=== PATIENT | male | born 2000 | race Caucasian/White ===

== ENCOUNTER 2019-04-27 09:09 | Observation (INO) | payer SELFPAY ==
[2019-04-27] VITALS (28 sets, daily range): BP systolic 101–146; BP diastolic 55–83; PULSE 58–91; RESP 14–20; TEMP 36.3–37.1; O2SAT 98–100; BMI 21.1
--- NOTE | 2019-04-27 09:55 | ED_ITS ---
Entered by Thalia Mccray, acting as scribe for HPI - Abdominal Pain General: Chief Complaint: Abdominal Pain Stated Complaint: pain in right side Time Seen by Provider: 04/27/19 09:56 Source: patient Mode of arrival: ambulatory Limitations: no limitations History of Present Illness: HPI narrative: 18 yo male presents with RLQ pain. pt states this started 2 days ago. 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 pt states this worsened 2 days ago and never got any better. pts last BM was this morning. pt denies any other symptoms at this time. MD elicited complaint: abdominal pain Pertinent past history: none Onset (ago): day(s) (2 days ago) Pain Consistency: constant Location: RLQ Severity: moderate Quality: sharp Radiation: none Migration to: RLQ Exacerbating factors: other (movement) Relieving factors: rest Associated Symptoms: Reports nausea and vomiting; Denies chills, coffee ground emesis, constipation, GI cramping, diarrhea, dysuria, fever(s), hematochezia, hematuria, hematemesis, melena and syncope Review of Systems General: Reports: 10 or more systems reviewed and unremarkable except in HPI and below Const: Denies: fever, chills, body aches, fatigue, malaise or diaphoresis Eyes: Denies: change in vision or blurry vision ENMT: Denies: throat pain, painful swallowing, hoarseness, ear pain, ear discharge, Change in hearing or nasal discharge Card: Denies: chest pain, palpitations, irregular heart rhythm, syncope, pre-syncope, shortness of breath on exertion or shortness of breath when lying down Resp: Denies: shortness of breath, productive cough, non-productive cough, wheezing, coughing up blood or chest congestion GI: Reports: abdominal pain, nausea and vomiting; Denies: vomiting blood, coffee grounds in vomit, diarrhea, constipation, cramping, blood in stool or black tarry stool : Denies: flank pain, difficulty urinating, painful urination, urinary frequency, urinary urgency, decreased urine ouput, urinary incontinence or blood in urine Musc: Denies: neck pain, back pain, extremity pain, extremity swelling, joint pain, joint swelling, joint warmth or joint stiffness Skin/Breast: Denies: rash, skin tenderness or yellow skin Neuro: Denies: headache, numbness in extremities, weakness in extremities, changes in sensation, lack of coordination, difficulty walking, dizziness, vertigo or confusion Endo: Denies: excessive thirst, tired all the time, cold intolerance, excessive sweating, flushing or hot flashes Kapil/Lymph: Denies: easy bruising, easy bleeding, petechiae or enlarged lymph nodes All/Imm: Denies: hives, throat swelling, tongue swelling, facial swelling or acute wheezing PFSH ED PFSH: Statuses (acute, chronic, etc) shown below reflect problem list status as previously entered and may not be historically accurate Social History Smoking and tobacco status: current every day smoker Alcohol intake: former Former alcohol use details: Has not drank for 30 days, used to drink 12 pack every other day Physical Exam Const: COMMON NORMALS: no apparent distress, oriented x3, no limitations, healthy appearing and well nourished EXAM LIMITATIONS: no altered mental status GENERAL APPEARANCE: cooperative, well kempt and well developed ORIENTATION/CONSCIOUSNESS: Yes awake HENMT: COMMON NORMALS: normocephalic, head/scalp atraumatic, hearing grossly normal bilaterally, external ears normal, EAC's normal, external nose normal and moist oral mucous membranes HEAD & SCALP: normal to inspection, normocephalic and atraumatic FACE & SINUS: normal facial exam and face symmetric NOSE: external nose normal and nares normal EXTERNAL EAR: Yes external ears normal EXTERNAL AUDITORY CANAL: EAC's normal MOUTH: oral and palatal mucosa normal and tongue normal Eye: COMMON NORMALS: PERRL, EOMs intact bilaterally, conjunctivae normal and no scleral icterus GENERAL EYE: normal appearance of both eyes and normal light reflex CONJUNCTIVA: Yes conjunctivae normal SCLERA: sclerae normal CORNEA: Yes corneas normal PUPIL: Yes PERRL DIRECT OPHTHALMOSCOPY: Yes normal light reflex Neck/C-Spine: COMMON NORMALS: full ROM, no lymphadenopathy, supple, no meningeal signs and no JVD GENERAL: Yes normal visual inspection and Yes trachea midline CERVICAL SPINE: Yes cervical ROM normal Chest: COMMONS NORMALS: inspection of chest normal and palpation of chest normal Resp: COMMON NORMALS: normal respiratory effort, no retractions, no use of accessory muscles and clear to auscultation bilaterally EFFORT & INSPECTION: Yes able to speak in complete sentences AUSCULTATION: clear to auscultation bilaterally Cardio: COMMON NORMALS: no JVD, regular rate, regular rhythm, S1 normal heart sound, S2 normal heart sound, no gallops, no clicks, no murmurs and no rub JUGULAR VENOUS DISTENTION: no JVD RATE: regular rate RHYTHM: regular rhythm HEART SOUNDS: S1 normal and S2 normal GI: COMMON NORMALS: soft to palpation, no hepatosplenomegaly and no masses PALPATION: Yes soft, Yes tender Details: RLQ (MODERATE) and Yes no hepatosp lenomegaly : COMMON NORMALS: Yes no CVA tenderness BLADDER/KIDNEY EXAM: Yes no CVA tenderness Back/Pelvis: COMMON NORMALS: no CVA tenderness, thoracic and lumbar spine normal to inspection, no thoracic nor lumbar tenderness and thoraco-lumbar ROM normal Extremity: COMMON NORMALS: normal to inspection, full ROM, normal capillary refill, no joint enlargement, no clubbing, cyanosis or edema and no calf tenderness Neuro: COMMON NORMALS: oriented x3, CN's II-XII intact bilaterally, moves all extremities, no focal motor deficits and no sensory deficits noted MENINGEAL SIGNS: Yes no meningeal signs Psych: COMMON NORMALS: mental status grossly normal, thought process normal, cooperative, affect normal, speech normal and activity/motor behavior normal APPEARANCE: Yes well kempt SPEECH: Yes normal speech THOUGHT PROCESS: normal thought process Skin: COMMON NORMALS: no rashes or lesions noted, skin turgor normal, no jaundice, no petechiae and no mottling GENERAL SKIN EXAM: no rashes or le sions noted and turgor normal Course Vital Signs: Vital signs: Vital Signs Temperature 98.2 F 04/27/19 13:27 Pulse Rate 65 04/27/19 13:27 Respiratory Rate 18 04/27/19 13:27 Blood Pressure 101/61 04/27/19 13:27 Pulse Oximetry 99 04/27/19 13:27 MDM - Abdominal Pain MDM Narrative: Medical decision making narrative: The patient has an atypical story but does have right lower quadrant pain on palpation. CT scan suggests appendicitis. I reviewed the case in full with Dr. Milan and he is agreeable to admission. Lab Data: Labs: Lab Results 04/27/19 04/27/19 04/27/19 Range/Units 10:02 10:02 10:07 WBC 6.3 (4.5-13.0) 10^3/ uL RBC 4.55 (4.1-5.3) 10^6/u L Hgb 13.7 (11.7-16.6) g/dL Hct 41.4 L (42.0-52.0) % MCV 91.0 (80-94) fL MCH 30.1 (28.0-34.0) pg MCHC 33.1 (30.0-36.0) g/dL RDW 11.8 L (12.1-15.1) % Plt Count 195 (130-400) 10^3/c mm MPV 10.1 (7.4-10.4) fL Neut % (Auto) 68.5 % Lymph % (Auto) 15.1 % [place] % (Auto) 11.9 % Eos % (Auto) 3.2 % Baso % (Auto) 1.0 % Neut # (Auto) 4.3 (1.8-8.0) 10^3/u L Lymph # (Auto) 1.0 L (1.5-6.5) 10^3/u L [place] # (Auto) 0.8 (0.2-0.9) 10^3/u L Eos # (Auto) 0.2 (0.0-0.8) 10^3/u L Baso # (Auto) 0.1 (0.0-0.1) 10^3/u L Nucleated RBC % (a uto) 0 % Nucleated RBCs # 0.0 /100WBC Sodium 139 (136-145) mmol/L Potassium 3.9 (3.5-5.1) mmol/L Chloride 104 (98-107) mmol/L Carbon Dioxide 27 (22-29) mmol/L Anion Gap 11.9 (5-19) BUN 13 (6-20) mg/dL Creatinine 0.8 (0.7-1.2) mg/dL GFR Calculation 124.5 (90-130) mL/min Glucose 84 (74-109) mg/dL Calcium 9.6 (8.6-10.0) mg/Dl Magnesium 2.1 (1.7-2.2) mg/dL Total Bilirubin 0.4 (0.15-1.2) mg/dL AST 30 (0-40) U/L ALT 30 (0-41) U/L Alkaline Phosphata se 82 (40-130) IU/L Total Protein 7.1 (6.6-8.7) g/dL Albumin 4.6 (3.5-5.2) g/dL Globulin 2.5 (1.3-4.6) g/dL Lipase 14 (13-60) U/L Urine Color Yellow (Yellow) Urine Appearance Clear (CLEAR) Urine pH 5 (5-7) Ur Specific Gravit y 1.010 (1.005-1.030) Urine Protein Neg (Negative) Urine Glucose (UA) Norm (Normal) Urine Ketones Negative (Negative) Urine Occult Blood Trace H (Negative) Urine Nitrate Negative (Negative) Urine Bilirubin Neg (NEGATIVE) Urine Urobilinogen Norm (Negative) mg/dL Ur Leukocyte Valery ase Negative (Negative) Urine RBC 5-10 H (0-2) /hpf Urine WBC 0-4 H (0-5) /hpf Ur Squamous Epith Cells 5-10 H (0-5) Urine Bacteria 1+ H (NONE) Urine Mucus Trace Imaging Data ^: CT Abd/Pel: Radiologist's impression: [place] [address] CT Scan Report Signed Patient: soren duffy MR#: [id number] : 2000 Acct:[id number] Age/Sex: 18 / M ADM Date: 04/27/19 Loc: ER Attending Dr: Ordering Physician: Korina Moss DO Date of Service: 04/27/19 Procedure(s): CT abdomen pelvis w con* [id number] Accession Number(s): [id number] Report Number: [id number] WS: [id number] CT ABDOMEN AND PELVIS WITH CONTRAST HISTORY: RLQ pain TECHNIQUE: Imaging performed of the abdomen and pelvis with IV contrast. Single phase imaging of the abdomen. Coronal and sagittal reformats are submitted. All CT scans at [facility] use at least one of these dose optimization techniques: automated exposure control; mA and/or kV adjustment per patient size (includes targeted exams where dose is matched to clinical indication); or iterative reconstruction. IV CONTRAST: Omnipaque 300; 95 mL IV. Oral contrast: No DLP: 540.16 mGy.cm COMPARISON: None available. Lower thorax: Subsegmental groundglass opacification at the LEFT lung base. Heart is normal size. No significant hiatal hernia. Liver/biliary system: Normal size with no intrahepatic dilatation. Gallbladder: Normal. Pancreas: Normal. Spleen: Normal. Adrenal glands: Normal. Right kidney: Normal. Left kidney: Normal. Aorta: No aneurysm or significant atherosclerosis. Lymphadenopathy: Small lymph nodes in the RIGHT lower quadrant. Lymph nodes are slightly hyperemic with the largest measuring 6 mm. Free fluid: None. GI tract: The appendix is top normal size at 6.8 mm. There is some very minimal inflammation around the proximal appendix. No fluid. Mild diffuse constipation. Abdominal wall: No defects, mass or hernia. Pelvis: Normal. Bones: Mild LEFT convex curvature of the lumbar spine. Notified Korina Moss at 04/27/2019 10:[address]/CT abdomen pelvis w con* [id number] IMPRESSION: 1. Appendix is top normal size with minimal adjacent inflammation. Equivocal for acute appendicitis. 2. RIGHT lower quadrant lymph nodes which may represent mesenteric adenitis. 3. Constipation. Dictated By: Any Lieberman DO Signed By: Any Lieberman DO Signed Date/Time:04/27/19 1116 DD/ 1038 Discharge Plan Discharge Patient Disposition: Admitted As Inpatient Admit Provider: Nick Milan Clinical Impression: Acute appendicitis Condition: Stable Discharge Date/Time: 04/27/19 13:07 Coding Level of Care Code ED Director Global Development for Marcie Mcdonald The documentation recorded by the Mahendra silveira Bridget Annette, accurately reflects the service I personally performed and the decisions made by Isa weeks Eli N
--- NOTE | 2019-04-27 10:07 | CT_ITS ---
WS: [id number] CT ABDOMEN AND PELVIS WITH CONTRAST HISTORY: RLQ pain TECHNIQUE: Imaging performed of the abdomen and pelvis with IV contrast. Single phase imaging of the abdomen. Coronal and sagittal reformats are submitted. All CT scans at [facility] use at least one of these dose optimization techniques: automated exposure control; mA and/or kV adjustment per patient size (includes targeted exams where dose is matched to clinical indication); or iterativ e reconstruction. IV CONTRAST: Omnipaque 300; 95 mL IV. Oral contrast: No DLP: 540.16 mGy.cm COMPARISON: None available. Lower thorax: Subsegmental groundglass opacification at the LEFT lung base. Heart is normal size. No significant hiatal hernia. Liver/biliary system: Normal size with no intrahepatic dilatation. Gallbladder: Normal. Pancreas: Normal. Spleen: Normal. Adrenal glands: Normal. Right kidney: Normal. Left kidney: Normal. Aorta: No aneurysm or significant atherosclerosis. Lymphadenopathy: Small lymph nodes in the RIGHT lower quadrant. Lymph nodes are slightly hyperemic wi th the largest measuring 6 mm. Free fluid: None. GI tract: The appendix is top normal size at 6.8 mm. There is some very minimal inflammation around t he proximal appendix. No fluid. Mild diffuse constipation. Abdominal wall: No defects, mass or hernia. Pelvis: Normal. Bones: Mild LEFT convex curvature of the lumbar spine. Notified Korina Moss at 04/27/2019 10:[address]/CT abdomen pelvis w con* [id number] IMPRESSION: 1. Appendix is top normal size with minimal adjacent inflammation. Equivocal f or acute appendicitis. 2. RIGHT lower quadrant lymph nodes which may represent mesenteric adenitis. 3. Constipation.
[2019-04-27] MEDS: sodium chloride 0.9% 1,000 ML 999 ML IV (10:16)
[2019-04-27] MEDS: ondansetron 2 mg/ML SDV 2 mL 4 MG IVP (10:17)
[2019-04-27] MEDS: morphine 4 mg/mL SDV 1 mL IVP ×2 (10:19→15:26)
[2019-04-27 10:24] LABS: Basophils # 0.1 10^3/uL (0.0-0.1); Eosinophils # 0.2 10^3/uL (0.0-0.8); Eosinophils % 3.2 %; Hematocrit 41.4 % (42.0-52.0); Hemoglobin 13.7 g/dL (11.7-16.6); Lymphocytes % 15.1 %; Mean Corpuscular HGB Conc 33.1 g/dL (30.0-36.0); Mean Corpuscular Hemoglobin 30.1 pg (28.0-34.0); Mean Platelet Volume 10.1 fL (7.4-10.4); Monocytes # 0.8 10^3/uL (0.2-0.9); Monocytes % 11.9 %; Neutrophils # 4.3 10^3/uL (1.8-8.0); Neutrophils % 68.5 %; Nucleated Red Blood Cells % 0 %; Platelet Count 195 10^3/cmm (130-400); Red Blood Count 4.55 10^6/uL (4.1-5.3); Red Cell Distribution Width 11.8 % (12.1-15.1); White Blood Count 6.3 10^3/uL (4.5-13.0)
--- NOTE | 2019-04-27 10:31 | PC.NURSE ---
Pt in CT
[2019-04-27 10:32] LABS: Alanine Aminotransferase 30 U/L (0-41); Albumin Level 4.6 g/dL (3.5-5.2); Alkaline Phosphatase 82 IU/L (40-130); Anion Gap 11.9 (5-19); Aspartate Amino Transferase 30 U/L (0-40); Blood Urea Nitrogen 13 mg/dL (6-20); Calcium 9.6 mg/Dl (8.6-10.0); Carbon Dioxide 27 mmol/L (22-29); Chloride 104 mmol/L (98-107); Globulin 2.5 g/dL (1.3-4.6); Glomerular Filtration Rate 124.5 mL/min (90-130); Glucose 84 mg/dL (74-109); Lipase 14 U/L (13-60); Magnesium 2.1 mg/dL (1.7-2.2); Potassium 3.9 mmol/L (3.5-5.1); Sodium 139 mmol/L (136-145); Total Bilirubin 0.4 mg/dL (0.15-1.2); Total Protein 7.1 g/dL (6.6-8.7)
--- NOTE | 2019-04-27 10:32 | PC.NURSE ---
Pt back from CT
[2019-04-27 11:18] LABS: Bilirubin Urine Neg (NEGATIVE); Blood Urine Trace (Negative); Glucose Urine UA Norm (Normal); Ketones Urine Negative (Negative); Leukocyte Esterase Urine Negative (Negative); Nitrate Urine Negative (Negative); Protein Urine Neg (Negative); Urine Appearance Clear (CLEAR); Urine Color Yellow (Yellow); Urobilinogen Urine Norm (Negative); pH Urine 5 (5-7)
[2019-04-27 11:20] LABS: Mucus Urine TRACE
[2019-04-27 11:22] LABS: Add Urine Culture? No; Bacteria Urine 1+; WBC Urine 0-4 /hpf (0-5)
[2019-04-27] MEDS: piperacillin-tazobactam 3.375 GM in sodium chloride 0.9% (plus) 50 ML IV (12:01)
[2019-04-27] MEDS: sodium chloride 0.9% 1,000 ML 100 ML IV ×3 (13:42→18:58)
--- NOTE | 2019-04-27 14:45 | PM.HP ---
Providers/Chief Complaint Admitting Physician: Nick Milan MD Chief Complaint: pain in right side History of Present Illness soren duffy is a 18 year old male Medications/Allergies Home Medications Medication Instructions Recorded Confirmed Last Taken Type acamprosate 333 mg PO TID 04/27/19 04/27/19 04/27/19 History amino acids-whey prot conc,iso See Rx Instructions .ROUTE .COMPLEX 04/27/19 04/27/19 Unknown History [[place] Protein] bupropion HCl 150 mg PO DAILY 04/27/19 04/27/19 04/27/19 History ibuprofen 800 mg PO TID PRN 04/27/19 04/27/19 04/27/19 History naltrexone 25 mg PO BID 04/27/19 04/27/19 04/27/19 History nicotine 1 patch TOPICAL DAILY PRN 04/27/19 04/27/19 04/27/19 History nicotine (polacrilex) 2 mg PO BID PRN 04/27/19 04/27/19 04/26/19 History trazodone 50 mg PO BEDTIME PRN 04/27/19 04/27/19 04/26/19 History Allergies Allergy/AdvReac Type Severity Reaction Status Date / Time No Known Allergies Allergy Verified 04/27/19 09:42 PFSH Acute PFSH: Statuses (acute, chronic, etc) shown below reflect problem list status as previously entered and may not be historically accurate Surgical History (Updated 04/27/19 @ 18:09 by Nick Milan MD) S/P appendectomy (Acute) Social History Smoking and tobacco status: current every day smoker Alcohol intake: former Former alcohol use details: Has not drank for 30 days, used to drink 12 pack every other day Vitals/I&O/Wt Last Vital Signs Temp 98.2 F 04/27/19 13:27 Pulse 65 04/27/19 13:27 Resp 18 04/27/19 13:27 BP 101/61 04/27/19 13:27 Pulse Ox 99 04/27/19 13:27 04/26/19 04/27/19 04/27/19 22:59 06:59 14:59 Intake Total 1000 / 1000 Output Total 200 / 200 Balance 800 / 800 Weight last 48 hrs Weight 160 lb A&P Assessment and plan (1) Acute appendicitis: Status: Resolved Code(s): K35.80 - Unspecified acute appendicitis Coding Level of Care Code Acute Document Coordinator for [employer] Diagnoses Acute appendicitis K35.80
--- NOTE | 2019-04-27 14:57 | PM.HP ---
Providers/Chief Complaint Admitting Physician: Nick Milan MD Chief Complaint: pain in right side History of Present Illness This is a 18-year-old male who is been dealing with generalized abdominal pain for the last 1 week. 2 nights ago he had severe pain but over the last day or so the pain has been localized to the right lower quadrant. Patient denies any nausea vomiting constipation or diarrhea. No fevers or chills. He had breakfast this morning and therefore surgery is to be delayed for 8 hours. Review of Systems Const: Denies: fever, chills, change in weight or fatigue Eyes: Denies: change in vision ENMT: Denies: painful swallowing Card: Denies: chest pain Resp: Denies: shortness of breath GI: Denies: abdominal pain or blood in stool : Denies: painful urination Skin/Breast: Denies: rash, nipple discharge or breast mass/lump Neuro: Denies: seizure-like activity Kapil/Lymph: Denies: easy bruising Medications/Allergies Home Medications Medication Instructions Recorded Confirmed Last Taken Type acamprosate 333 mg PO TID 04/27/19 04/27/19 04/27/19 History amino acids-whey prot conc,iso See Rx Instructions .ROUTE .COMPLEX 04/27/19 04/27/19 Unknown History [[place]hey Protein] bupropion HCl 150 mg PO DAILY 04/27/19 04/27/19 04/27/19 History ibuprofen 800 mg PO TID PRN 04/27/19 04/27/19 04/27/19 History naltrexone 25 mg PO BID 04/27/19 04/27/19 04/27/19 History nicotine 1 patch TOPICAL DAILY PRN 04/27/19 04/27/19 04/27/19 History nicotine (polacrilex) 2 mg PO BID PRN 04/27/19 04/27/19 04/26/19 History trazodone 50 mg PO BEDTIME PRN 04/27/19 04/27/19 04/26/19 History Allergies Allergy/AdvReac Type Severity Reaction Status Date / Time No Known Allergies Allergy Verified 04/27/19 09:42 PFSH Acute PFSH: Statuses (acute, chronic, etc) shown below reflect problem list status as previously entered and may not be historically accurate Social History Smoking and tobacco status: current every day smoker Alcohol intake: former Former alcohol use details: Has not drank for 30 days, used to drink 12 pack every other day Vitals/I&O/Wt Last Vital Signs Temp 98.2 F 04/27/19 13:27 Pulse 65 04/27/19 13:27 Resp 18 04/27/19 13:27 BP 101/61 04/27/19 13:27 Pulse Ox 99 04/27/19 13:27 04/26/19 04/27/19 04/27/19 22:59 06:59 14:59 Intake Total 1000 / 1000 Output Total 200 / 200 Balance 800 / 800 Weight last 48 hrs Weight 160 lb Physical Exam Const: COMMON NORMALS: no apparent distress ORIENTATION/CONSCIOUSNESS: Yes oriented to person, Yes oriented to place and Yes oriented to time HENMT: COMMON NORMALS: normocephalic HEAD & SCALP: normocephalic Eye: GENERAL EYE: normal appearance of both eyes Resp: COMMON NORMALS: clear to auscultation bilaterally AUSCULTATION: clear to auscultation bilaterally Cardio: COMMON NORMALS: S1 normal heart sound and S2 normal heart sound HEART SOUNDS: S1 normal and S2 normal GI: COMMON NORMALS: soft to palpation PALPATION: Yes soft and Yes tender Details: RLQ Neuro: SENSORIUM/ORIENTATION: Yes oriented to person, Yes oriented to place and Yes oriented to time Skin: COMMON NORMALS: no rashes or lesions noted GENERAL SKIN EXAM: no rashes or lesions noted A&P Assessment and plan (1) Acute appendicitis: 18-year-old male with right lower quadrant pain with CT scan findings consistent with acute appendicitis Plan for laparoscopic possible open appendectomy procedure, risks, benefits and alternatives have been discussed with the patient who wishes to proceed with surgery. Status: Acute Code(s): K35.80 - Unspecified acute appendicitis Attestations Medical Necessity Statement*: Acute appendicitis plan for laparoscopic appendectomy tonight, should be able to go home after that Coding Level of Care Code Acute Software Engineer Sales for [facility] Harry Diagnoses Acute appendicitis K35.80
--- NOTE | 2019-04-27 16:24 | P.PN_ITS ---
Pre-Anesthetic Assessment Pre-Anesthetic Assessment: Height/Weight: Height 1.85 m Weight 72.575 kg Temp Pulse Resp BP Pulse Ox 97.9 F 65 18 115/56 100 04/27/19 15:58 04/27/19 15:58 04/27/19 15:58 04/27/19 15:58 04/27/19 15:58 Proposed Procedure: Operation Date: 04/27/19 17:00 Proposed Procedures p Laparoscopic Appendectomy(Not Applicable) - Nick Milan MD Social: Comment: In ETOH recovery, none in last 30 days Airway: Submandibular: WNL Cervical ROM: WNL MP: 2 Dentition: Chipped (Back right tooth chipped) History/ROS: No significant history except as noted Pulmonary: Pulmonary: None reported CV/HEM: CV/HEM: None reported : : None reported Hepatic: Hepatic: None reported GI: GI: None reported Metabolic: Metabolic: None reported Musc/skel: Musc/skel: None reported Neuropsych: Neuropsych: None reported Anesthetic Plan: ASA status: II Anesthesia: General Risk of > 500 ml blood loss (7ml/kg in children): No Meds/Allergies Current Medications: Current Medications Generic Name Dose Route Start Last Admin Trade Name Freq PRN Reason Stop Dose Admin Piperacillin Sod/T azobactam 50 mls @ 12.5 mls /hr 04/27/19 12:00 04/27/19 12:01 Sod 3.375 gm/ So dium Chloride IV 12.5 mls/hr Q8H JANE Administration Protocol Sodium Chloride 1,000 mls @ 100 m ls/hr 04/27/19 13:27 04/27/19 13:42 Sodium Chloride 0.9% IV 100 mls/hr .Q10H JANE Administration Morphine Sulfate 4 mg 04/27/19 13:27 04/27/19 15:26 Morphine IVP 4 mg Q4H PRN Administration SEVERE PAIN PFSH Anesthesia PFSH: Social History Smoking and tobacco status: current every day smoker Alcohol intake: former Former alcohol use details: Has not drank for 30 days, used to drink 12 pack every other day Data Anesthesia Labs: Other Labs: Laboratory Results - last 48 hr 04/27/19 04/27/19 04/27/19 10:02 10:02 10:07 WBC 6.3 RBC 4.55 Hgb 13.7 Hct 41.4 L MCV 91.0 MCH 30.1 MCHC 33.1 RDW 11.8 L Plt Count 195 MPV 10.1 Neut % (Auto) 68.5 Lymph % (Auto) 15.1 [place] % (Auto) 11.9 Eos % (Auto) 3.2 Baso % (Auto) 1.0 Neut # (Auto) 4.3 Lymph # (Auto) 1.0 L [place] # (Auto) 0.8 Eos # (Auto) 0.2 Baso # (Auto) 0.1 Nucleated RBC % (a uto) 0 Nucleated RBCs # 0.0 Sodium 139 Potassium 3.9 Chloride 104 Carbon Dioxide 27 Anion Gap 11.9 BUN 13 Creatinine 0.8 GFR Calculation 124.5 Glucose 84 Calcium 9.6 Magnesium 2.1 Total Bilirubin 0.4 AST 30 ALT 30 Alkaline Phosphata se 82 Total Protein 7.1 Albumin 4.6 Globulin 2.5 Lipase 14 Urine Color Yellow Urine Appearance Clear Urine pH 5 Ur Specific Gravit y 1.010 Urine Protein Neg Urine Glucose (UA) Norm Urine Ketones Negative Urine Occult Blood Trace H Urine Nitrate Negative Urine Bilirubin Neg Urine Urobilinogen Norm Ur Leukocyte Valery ase Negative Urine RBC 5-10 H Urine WBC 0-4 H Ur Squamous Epith Cells 5-10 H Urine Bacteria 1+ H Urine Mucus Trace Cardiac Studies: No Data to Display
--- NOTE | 2019-04-27 18:14 | P.OP_ITS ---
Operative Report Post-Operative Note: Date of procedure: 04/27/19 Preop Diagnosis: Acute appendicitis Post-op diagnosis: same Specimens removed/disposition: appendix Surgeon: Nick Milan Anesthesia: general Estimated blood loss (mL): 10 Condition: stable Disposition: PACU Operative Report: Procedure: The patient was taken to the Operating Room and intubated under general anesthesia after antibiotic had been administered. Using a 15 blade, a 1-cm infraumbilical incision was made and using open Reny technique, the peritoneal cavity was entered. A 12mm port with balloon was placed and 14 mm of pneumoperitoneum was created and 10-mm 30 degree scope was introduced. Two separate 5mm ports were placed in the left and right lower quadrant under direct visualization. The appendix was noted in the right lower quadrant and appeared acutely inflamed with suppuration.. Using [place] forceps, an opening was made in the mesoappendix near the base of the appendix. An Endo TRACEE stapler 45mm long 3.5mm blue load was introduced to divide the appendix at it's base. Using electrocautery, the mesoappendix including the appendicular artery was divided. There was no bleeding noted and the staple line appeared intact. The right lower quadrant was irrigated with saline and an EndoCatch bag was introduced to remove the appendix. All three ports were removed under direct visualization and there was no bleeding noted on the port sites. The fascia at the umbilical port was closed using figure of eight 0- Vicryl sutures and subcutaneous tissue was approximated using 3-0 Vicryl and skin at all 3 port sites was closed using 4-0 Monocryl and Dermabond. Coding Level of Care Code Acute Obstetrics Gynecology Physician for Marcie Mcdonald
--- NOTE | 2019-04-27 18:15 | PM.DCS ---
Discharge Providers Date of Admission: 04/27/19 12:57 Date of Discharge: 04/27/19 Attending Provider at Admission: Nick Milan MD Attending Provider at Discharge: Nick Milan MD Diagnoses at Discharge Discharge Diagnosis (1) Acute appendicitis: Status: Resolved Reason for Visit Reason for Visit: Reason For Visit: pain in right side Hospital Course Hospital Course: Patient was admitted to the hospital and started on IV Zosyn. Patient underwent laparoscopic appendectomy. Patient tolerated the procedure well. At time of discharge he was tolerating a liquid diet, his vital signs are stable and his pain is controlled with oral pain medications. Physical Exam GI: COMMON NORMALS: soft to palpation PALPATION: Yes soft Discharge Data Data Completed and Pending: Completed Studies During Hospitalization Category Date Time Status CT abdomen pelvis w con* [id number] Urge nt Cat Scan 04/27/19 10:07 Completed Pending at discharge Category Date Time Status Pathology: Surgic al [PTH] Routine Pth 04/27/19 18:12 Ordered Labs from last 24 hours 04/27/19 04/27/19 04/27/19 10:07 10:02 10:02 WBC 6.3 RBC 4.55 Hgb 13.7 Hct 41.4 L MCV 91.0 MCH 30.1 MCHC 33.1 RDW 11.8 L Plt Count 195 MPV 10.1 Neut % (Auto) 68.5 Lymph % (Auto) 15.1 Crenshaw % (Auto) 11.9 Eos % (Auto) 3.2 Baso % (Auto) 1.0 Neut # (Auto) 4.3 Lymph # (Auto) 1.0 L Crenshaw # (Auto) 0.8 Eos # (Auto) 0.2 Baso # (Auto) 0.1 Nucleated RBC % (a uto) 0 Nucleated RBCs # 0.0 Sodium 139 Potassium 3.9 Chloride 104 Carbon Dioxide 27 Anion Gap 11.9 BUN 13 Creatinine 0.8 GFR Calculation 124.5 Glucose 84 Calcium 9.6 Magnesium 2.1 Total Bilirubin 0.4 AST 30 ALT 30 Alkaline Phosphata se 82 Total Protein 7.1 Albumin 4.6 Globulin 2.5 Lipase 14 Urine Color Yellow Urine Appearance Clear Urine pH 5 Ur Specific Gravit y 1.010 Urine Protein Neg Urine Glucose (UA) Norm Urine Ketones Negative Urine Occult Blood Trace H Urine Nitrate Negative Urine Bilirubin Neg Urine Urobilinogen Norm Ur Leukocyte Valery ase Negative Urine RBC 5-10 H Urine WBC 0-4 H Ur Squamous Epith Cells 5-10 H Urine Bacteria 1+ H Urine Mucus Trace Imaging^: CT Abd/Pel: Radiologist's impression: CT ABDOMEN AND PELVIS WITH CONTRAST HISTORY: RLQ pain TECHNIQUE: Imaging performed of the abdomen and pelvis with IV contrast. Single phase imaging of the abdomen. Coronal and sagittal reformats are submitted. All CT scans at [facility] use at least one of these dose optimization techniques: automated exposure control; mA and/or kV adjustment per patient size (includes targeted exams where dose is matched to clinical indication); or iterative reconstruction. IV CONTRAST: Omnipaque 300; 95 mL IV. Oral contrast: No DLP: 540.16 mGy.cm COMPARISON: None available. Lower thorax: Subsegmental groundglass opacification at the LEFT lung base. Heart is normal size. No significant hiatal hernia. Liver/biliary system: Normal size with no intrahepatic dilatation. Gallbladder: Normal. Pancreas: Normal. Spleen: Normal. Adrenal glands: Normal. Right kidney: Normal. Left kidney: Normal. Aorta: No aneurysm or significant atherosclerosis. Lymphadenopathy: Small lymph nodes in the RIGHT lower quadrant. Lymph nodes are slightly hyperemic with the largest measuring 6 mm. Free fluid: None. GI tract: The appendix is top normal size at 6.8 mm. There is some very minimal inflammation around the proximal appendix. No fluid. Mild diffuse constipation. Abdominal wall: No defects, mass or hernia. Pelvis: Normal. Bones: Mild LEFT convex curvature of the lumbar spine. 1. Appendix is top normal size with minimal adjacent inflammation. Equivocal for acute appendicitis. 2. RIGHT lower quadrant lymph nodes which may represent mesenteric adenitis. 3. Constipation. Procedures Performed: Laparoscopic appendectomy Vitals: Last Vital Signs Temp 97.9 F 04/27/19 15:58 Pulse 65 04/27/19 15:58 Resp 18 04/27/19 15:58 BP 115/56 04/27/19 15:58 Pulse Ox 100 04/27/19 15:58 Discharge Plan Discharge Patient Disposition: Home, Self-Care Condition: Stable Prescriptions: New ketorolac 10 mg tablet 10 mg PO Q8H PRN (Reason: pain) Qty: 20 RF: 0 Continued nicotine 14 mg/24 hr Patch 24 Hour 1 patch topical DAILY PRN (Reason: Withdrawal Symptoms) RF: 0 trazodone 50 mg Tablet 50 mg PO BEDTIME PRN (Reason: Sleep) RF: 0 ibuprofen 800 mg Tablet 800 mg PO TID PRN (Reason: Pain) RF: 0 naltrexone 50 mg Tablet 25 mg PO BID RF: 0 nicotine (polacrilex) 2 mg Lozenge 2 mg PO BID PRN (Reason: Withdrawal Symptoms) RF: 0 bupropion HCl 150 mg Tablet Extended Release 24 Hr 150 mg PO DAILY RF: 0 acamprosate 333 mg Tablet,Delayed Release (Dr/Ec) 333 mg PO TID RF: 0 Whey Protein 20 gram-140 kcal/39 gram Powder See Rx Instructions .ROUTE .COMPLEX RF: 0 Discharge Orders: Discharge Order (Routine); Ordered 04/27/19 Ordered By: Nick Milan Referrals: Nick Milan MD [Physician] - 2 weeks Discharge Diet: Advance as tolerated Activity Restrictions/Additional Instructions: 1. Up and walking as tolerated. 2. Ok to shower in 48 hours after surgery. 3. Remove surgical glue in 7-10 days. 4. Do not lift more than 10 pounds. 5. Do not operate heavy machinery or drive while using pain medications. 6. Advised to return to ER or contact my office if there are any signs of infection like, increasing pain, fevers, chills, redness or drainage of pus. Discharge Attestations Time Spent in Discharge Care*: less than 30 min Quality Metrics Clinical Quality Measures During this hospital stay, did patient experience: None Coding Level of Care Code Acute Sales Agent Financial Report Service for Marcie Mcdonald Diagnoses Acute appendicitis K35.80
[2019-04-27] MEDS: meperidine 50 mg/mL INJ 12.5 MG IVP ×2 (18:39→18:45)
--- NOTE | 2019-04-27 19:50 | SUR.PHASEI ---
1809 PT TO PACU WITH GOOD RESP NOTED ABD SOFT WITH 3 SITES TO ABD WITH EXOFIIN D/I BILAT SCDS ON 1819 PT AWAKE ALERT C/O OF (I HAVE TO USE THE BTHROOM) PT ASSISTED ON BEDPAN, CURTAINS PULLED PT DENIES PAIN AND NAUSES , JUST ABD CRAMPING. VSS 1843 SEE PAIN MEDS GIVEN FOR SHIVERING UNCONTROLLABLE EVEN AFTER WARM BLANKETS GIVE TO PT PT NOW RESTING QIETLY, PT OFF BEDPAN 1899 PT REPORT CALLED TO FLOOR AND PT FAMILY UPDATED AND WILL WALK UP TO FLOOR WITH PT, PT SLEEPS IF NOT DISTURBED 1914 PT TO FLOOR , ALERT TALKATIVE MOVES SELF TO BED WITH NO ASSIST, NURSE CARL IN ROOM.
[2019-04-27] MEDS: ketorolac 10 mg Tablet PO (20:11)
--- NOTE | 2019-04-27 22:27 | PC.NURSE ---
Discharge Pt. IV removed and 2x2 gauze and coban placed to site. Pt. changed into street clothing. Pt. given discharge paperwork and information. Scripts sent to [facility] in , family is aware. Pt. taken via wheelchair to personal vehicle by [employer] [facility]. Pt. is not driving, family is. Pt. tolerating liquids well, has instructions to advance diet as tolerated.
--- NOTE | 2019-04-27 22:40 | NUR.SHIFT ---
Skin assessment Pt. has stabs x3 to medial and left lower abdomen and umbilical area. Stabs CD&I, well approximated with no redness or drainage.
== END 2019-04-27 20:45 | disposition home or self-care (01) ==
LOC: ER 12:17 → MEDSURG 12:57
PROVIDERS: Admitting Provider Surgery; Emergency Provider Emergency Medicine; Visit Provider Surgery
PROC: 0DTJ4ZZ Resection of Appendix, Percutaneous Endoscopic Approach (ICD-10-PCS; CPT 44970; principal; 2019-04-27 17:00)
DX: K35.80 Unspecified acute appendicitis (principal); F17.210 Nicotine dependence, cigarettes, uncomplicated
CPT/HCPCS: 44970; 74177; 80053; 81001; 83690; 83735; 85025; 88304; 96360; 96361; 96365; 96366; 96374; 96375; 99221; 99282; 99285; G0378; J1100; J1885; J2001; J2175; J2270; J2405; J2543; J2704; J2710; J3010; J3490; J7030; Q9967

== ENCOUNTER 2019-06-17 17:07 | Emergency (ER) | payer SELFPAY ==
--- NOTE | 2019-06-17 17:09 | CTR_ITS ---
PROCEDURE INFORMATION: Exam: CT Abdomen And Pelvis With Contrast Exam date and time: 06/17/2019 5:52 PM Age: 19 years old Clinical indication: Abdominal pain; Epigastric; Prior surgery; Surgery date: 1-6 months; Surgery type: Appy; Additional info: Abd pain TECHNIQUE: Imaging protocol: Computed tomography of the abdomen and pelvis with intravenous contrast. Total DLP: 513.08 mGy-cm Radiation optimization: All CT scans at this facility use at least one of these dose optimization techniques: automated exposure control; mA and/or kV adjustment per patient size (includes targeted exams where dose is matched to clinical indication); or iterative reconstruction. Contrast material: OMNI 300; Contrast volume: 95 ml; Contrast route: RT AC; COMPARISON: CT abdomen pelvis w con* [id number] 04/27/2019 10:25 AM FINDINGS: Liver: Normal. No mass. Gallbladder and bile ducts: Normal. No calcified stones. No ductal dilation. Pancreas: Normal. No ductal dilation. Spleen: Normal. No splenomegaly. Adrenals: Normal. No mass. Kidneys and ureters: Normal. No hydronephrosis. Stomach and bowel: A large amount of stool is present in the colon. No intestinal obstruction. Appendix: The appendix has been removed. Intraperitoneal space: Unremarkable. No free air. No significant fluid collection. Vasculature: Unremarkable. No abdominal aortic aneurysm. Lymph nodes: Unremarkable. No enlarged lymph nodes. Bladder: Unremarkable as visualized. Reproductive: Unremarkable as visualized. Bones/joints: Unremarkable. No acute fracture. Soft tissues: Unremarkable. CT/CT abdomen pelvis w con* [id number] IMPRESSION: No acute abnormality is seen. Possible constipation. Radiation Dose CTDIVOL = (mGy): DLP = 513.08 (mGy-cm)
[2019-06-17 17:30] VITALS: BP 145/82; PULSE 104; RESP 15; TEMP 37.1; O2SAT 96; BMI 19.8
[2019-06-17] MEDS: lidocaine 2% viscous 15 ML, aluminum-mag hydrox-simethicon 30 ML, sucralfate oral liq 1 GM PO (17:38)
[2019-06-17] MEDS: ondansetron 2 mg/ML SDV 2 mL 4 MG IVP (17:38)
[2019-06-17 17:41] VITALS: RESP 18; O2SAT 96
[2019-06-17 17:45] VITALS: RESP 16
--- NOTE | 2019-06-17 17:48 | ED_ITS ---
Entered by Africa Pete, acting as scribe for Zoraida Aguillon MD, [facility] [place] Jun 17, 2019 17:07 HPI - Abdominal Pain General: Chief Complaint: Abdominal Pain Stated Complaint: ABD PAIN Time Seen by Provider: 06/17/19 17:48 Source: patient Mode of arrival: ambulatory Limitations: no limitations History of Present Illness: HPI narrative: 19 yo Male presents to ED with complaint of abdominal pain. Pt states that he went to a hospital in [place] on Tuesday and they did a chest xray and told him it was probably a stomach bug. Pt states that he doesn't feel sick. Pt states that he has epigastric pain especially when he eats. Pt states that he tried to eat [employer] last night and it wasn't good. Pt was given a GI Cocktail and states that it helped his pain. MD elicited complaint: abdominal pain Onset (ago): day(s) Pain Consistency: intermittent Location: Epigastric Radiation: none Migration to: no migration Exacerbating factors: eating Relieving factors: nothing Associated Symptoms: Reports no associated symptoms; Denies chills, dysuria, fever(s), nausea and vomiting Review of Systems General: Reports: 10 or more systems reviewed and unremarkable except in HPI and below Const: Denies: fever, chills or body aches Eyes: Denies: change in vision or blurry vision ENMT: Denies: throat pain, enlarged tonsils, painful swallowing, hoarseness, mouth pain or swelling of lips/tongue Card: Denies: chest pain, palpitations, irregular heart rhythm, edema or swelling of feet/ankles Resp: Denies: shortness of breath, productive cough or non-productive cough GI: Reports: abdominal pain; Denies: nausea or vomiting : Denies: flank pain, painful urination, urinary frequency, urinary urgency or urinary hesitancy Musc: Denies: neck pain, back pain or extremity swelling Skin/Breast: Denies: rash, itching or redness Neuro: Denies: headache, numbness in extremities or weakness in extremities Endo: Denies: excessive urination, excessive thirst or tired all the time PFS ED PFSH: Surgical History S/P appendectomy Social History (Reviewed 06/17/19 @ 18:03 by Africa Gates Smoking and tobacco status: current every day smoker Alcohol intake: former Former alcohol use details: Has not drank for 30 days, used to drink 12 pack every other day Physical Exam Const: COMMON NORMALS: no apparent distress, average body habitus, oriented x3, no limitations, healthy appearing, alert and well nourished HENMT: COMMON NORMALS: normocephalic, head/scalp atraumatic and moist oral mucous membranes HEAD & SCALP: normocephalic and atraumatic Eye: COMMON NORMALS: PERRL, EOMs intact bilaterally, conjunctivae normal and no scleral icterus CONJUNCTIVA: Yes conjunctivae normal PUPIL: Yes PERRL Neck/C-Spine: COMMON NORMALS: full ROM, supple, no meningeal signs, no JVD and no carotid bruits Chest: COMMONS NORMALS: inspection of chest normal and palpation of chest normal Resp: COMMON NORMALS: normal respiratory effort, no retractions, no use of acc essory muscles, clear to auscultation bilaterally and percussion normal AUSCULTATION: clear to auscultation bilaterally PERCUSSION: percussion normal Cardio: COMMON NORMALS: no JVD, regular rate, regular rhythm, S1 normal heart sound, S2 normal heart sound, no gallops, no clicks, no murmurs, no rub and peripheral pulses 2+ throughout RATE: regular rate RHYTHM: regular rhythm HEART SOUNDS: S1 normal and S2 normal PERIPHERAL PULSES: pulses 2+ throughout GI: COMMON NORMALS: normal to inspection, nondistended, normoactive bowel sounds, soft to palpation, no hepatosplenomegaly, no masses and no bruits PALPATION: Yes soft, Yes tender (Epigastric) and Yes no hepatosplenomegaly : COMMON NORMALS: Yes no CVA tenderness BLADDER/KIDNEY EXAM: Yes no CVA tenderness Back/Pelvis: COMMON NORMALS: no CVA tenderness Extremity: COMMON NORMALS: normal to inspection, full ROM, normal capillary refill, no calf tenderness and no pedal edema Neuro: COMMON NORMALS: oriented x3 SENSORIUM/ORIENTATION: Yes alert MENINGEAL SIGNS: Yes no meningeal signs Skin: COMMON NORMALS: no rashes or lesions noted, no wounds, skin turgor normal, no jaundice, no petechiae and no mottling GENERAL SKIN EXAM: no rashes or lesions noted and turgor normal Course Vital Signs: Vital signs: Vital Signs Temperature 98.8 F 06/17/19 17:30 Pulse Rate 71 06/17/19 19:55 Respiratory Rate 18 06/17/19 19:55 Blood Pressure 130/73 06/17/19 19:55 Pulse Oximetry 99 06/17/19 19:55 MDM - Abdominal Pain MDM Narrative: Medical decision making narrative: Patient with clinical features of acute gastritis. CT scan findings also show constipation. He is discharged home on oral PPI and H2 blockers. Patient states that he drinks plenty of caffeine. He also eats a lot of fast and fatty foods. Medical Records: Attestation: I reviewed the patient's medical records. Lab Data: Attestation: I reviewed the patient's lab results. Labs: Lab Results 06/17/19 06/17/19 06/17/19 Range/Units 17:43 17:48 17:48 WBC 8.1 (4.5-13.0) 10^3/ uL RBC 5.00 (4.1-5.3) 10^6/u L Hgb 14.7 (11.7-16.6) g/dL Hct 44.6 (42.0-52.0) % MCV 89.2 (80-94) fL MCH 29.4 (28.0-34.0) pg MCHC 33.0 (30.0-36.0) g/dL RDW 11.4 L (12.1-15.1) % Plt Count 292 (130-400) 10^3/c mm MPV 10.1 (7.4-10.4) fL Neut % (Auto) 62.2 % Lymph % (Auto) 23.7 % Moody % (Auto) 10.8 % Eos % (Auto) 1.6 % Baso % (Auto) 1.1 % Neut # (Auto) 5.0 (1.8-8.0) 10^3/u L Lymph # (Auto) 1.9 (1.5-6.5) 10^3/u L Moody # (Auto) 0.9 (0.2-0.9) 10^3/u L Eos # (Auto) 0.1 (0.0-0.8) 10^3/u L Baso # (Auto) 0.1 (0.0-0.1) 10^3/u L Nucleated RBC % (a uto) 0 % Nucleated RBCs # 0.0 /100WBC Sodium 142 (136-145) mmol/L Potassium 4.2 (3.5-5.1) mmol/L Chloride 103 (98-107) mmol/L Carbon Dioxide 27 (22-29) mmol/L Anion Gap 16.2 (5-19) BUN 10 (6-20) mg/dL Creatinine 0.7 (0.7-1.2) mg/dL GFR Calculation 143.8 H (90-130) mL/min Glucose 93 (65-115) mg/dL Calcium 10.7 H (8.5-10.5) mg/dL Total Bilirubin 0.5 (0.15-1.2) mg/dL AST 20 (0-40) U/L ALT 18 (0-41) U/L Alkaline Phosphata se 99 (40-130) IU/L Total Protein 7.7 (6.6-8.7) g/dL Albumin 4.3 (3.5-5.2) g/dL Globulin 3.4 (1.3-4.6) g/dL Lipase 23 (13-60) U/L Urine Color Straw (Yellow) Urine Appearance Clear (CLEAR) Urine pH 8 H (5-7) Ur Specific Gravit y 1.010 (1.005-1.030) Urine Protein Neg (Negative) Urine Glucose (UA) Norm (Normal) Urine Ketones Negative (Negative) Urine Blood Neg (Negative) Urine Nitrate Negative (Negative) Urine Bilirubin Neg (NEGATIVE) Prot Sulfosalicyli c Acd Negative Urine Urobilinogen Norm (Negative) mg/dL Ur Leukocyte Valery ase Negative (Negative) Imaging Data ^: CT Abd/Pel: Radiologist's impression: [address] [address] [address] Scan Report Signed Patient: AVINASH BUSH #: [id number] : 2000Acct#:[id number] Age/Sex: 19 / MADM Date: 06/17/19 Loc: ERRoom/Bed: Attending Dr: Ordering Provider/Ordering MD: Britni Rodriguez MD Date of Service: 06/17/19 Procedure(s): CT abdomen pelvis w con* [id number] Accession Number(s): [id number] Report Number: [id number] PROCEDURE INFORMATION: Exam: CT Abdomen And Pelvis With Contrast Exam date and time: 06/17/2019 5:52 PM Age: 19 years old Clinical indication: Abdominal pain; Epigastric; Prior surgery; Surgery date: 1-6 months; Surgery type: Appy; Additional info: Abd pain TECHNIQUE: Imaging protocol: Computed tomography of the abdomen and pelvis with intravenous contrast. Total DLP: 513.08 mGy-cm Radiation optimization: All CT scans at this facility use at least one of these dose optimization techniques: automated exposure control; mA and/or kV adjustment per patient size (includes targeted exams where dose is matched to clinical indication); or iterative reconstruction. Contrast material: OMNI 300; Contrast volume: 95 ml; Contrast route: RT AC; COMPARISON: CT abdomen pelvis w con* [id number] 04/27/2019 10:25 AM FINDINGS: Liver: Normal. No mass. Gallbladder and bile ducts: Normal. No calcified stones. No ductal dilation. Pancreas: Normal. No ductal dilation. Spleen: Normal. No splenomegaly. Adrenals: Normal. No mass. Kidneys and ureters: Normal. No hydronephrosis. Stomach and bowel: A large amount of stool is present in the colon. No intestinal obstruction. Appendix: The appendix has been removed. Intraperitoneal space: Unremarkable. No free air. No significant fluid collection. Vasculature: Unremarkable. No abdominal aortic aneurysm. Lymph nodes: Unremarkable. No enlarged lymph nodes. Bladder: Unremarkable as visualized. Reproductive: Unremarkable as visualized. Bones/joints: Unremarkable. No acute fracture. Soft tissues: Unremarkable. CT/CT abdomen pelvis w con* [id number] IMPRESSION: No acute abnormality is seen. Possible constipation. Radiation Dose CTDIVOL = (mGy): DLP = 513.08 (mGy-cm) Dictated By:Remigio Sanchez MD Signed By:Remigio Sanchez MDSigned Date/Time:06/17/191833 DD/ 32 Discharge Plan Discharge Patient Disposition: Home, Self-Care Clinical Impression: Gastritis Qualifiers: Gastritis type: other gastritis Chronicity: acute Gastritis bleeding: without bleeding Qualified Code(s): K29.00 - Acute gastritis without bleeding Constipation Qualifiers: Constipation type: unspecified constipation type Qualified Code(s): K59.00 - Constipation, unspecified Condition: Stable Prescriptions: New Pepcid 40 mg tablet 40 mg PO BID Qty: 60 RF: 0 omeprazole 40 mg capsule,delayed release(DR/EC) 40 mg PO DAILY 28 Days RF: 0 Discharge Orders: Discharge Order (Routine); Ordered 06/17/19 Ordered By: Zoraida Aguillon Patient Instructions: Gastritis (ED), Constipation (ED) Activity Restrictions/Additional Instructions: Return for any new or worsening symptoms. Take your medications as prescribed. Avoid caffeine, spicy foods, acidic foods, fatty foods until your symptoms have resolved. He can also obtain some [id number] laxatives to use for constipation. Drink plenty of fluids to keep well-hydrated Discharge Date/Time: 06/17/19 19:56 Coding Level of Care Code ED Wind Turbine Controls Engineer for Chg Fwd Exam Comprehensive The documentation recorded by the Yanci silveira Carmen, accurately reflects the service I personally performed and the decisions made by Pal weeks Adegoke I, MD, [facility] [place] Jun 17, 2019 17:07
[2019-06-17 17:55] LABS: Add Urine Microscopic? NO
[2019-06-17 17:55] LABS: Basophils # 0.1 10^3/uL (0.0-0.1); Basophils % 1.1 %; Eosinophils # 0.1 10^3/uL (0.0-0.8); Eosinophils % 1.6 %; Hematocrit 44.6 % (42.0-52.0); Hemoglobin 14.7 g/dL (11.7-16.6); Lymphocytes # 1.9 10^3/uL (1.5-6.5); Lymphocytes % 23.7 %; Mean Corpuscular Hemoglobin 29.4 pg (28.0-34.0); Mean Corpuscular Volume 89.2 fL (80-94); Mean Platelet Volume 10.1 fL (7.4-10.4); Monocytes # 0.9 10^3/uL (0.2-0.9); Monocytes % 10.8 %; Neutrophils % 62.2 %; Nucleated Red Blood Cells % 0 %; Platelet Count 292 10^3/cmm (130-400); Red Cell Distribution Width 11.4 % (12.1-15.1); White Blood Count 8.1 10^3/uL (4.5-13.0)
[2019-06-17] MEDS: iohexol 300 mg/mL 100 mL Btl IV (17:55)
[2019-06-17 18:00] LABS: Bilirubin Urine Neg (NEGATIVE); Blood Urine Neg (Negative); Glucose Urine UA Norm (Normal); Ketones Urine Negative (Negative); Leukocyte Esterase Urine Negative (Negative); Nitrate Urine Negative (Negative); Protein Urine Neg (Negative); Sulfosalicylic Acid Urine Negative; Urine Appearance Clear (CLEAR); Urine Color Straw (Yellow); Urobilinogen Urine Norm (Negative); pH Urine 8 (5-7)
[2019-06-17 18:15] LABS: Alanine Aminotransferase 18 U/L (0-41); Albumin Level 4.3 g/dL (3.5-5.2); Alkaline Phosphatase 99 IU/L (40-130); Anion Gap 16.2 (5-19); Aspartate Amino Transferase 20 U/L (0-40); Blood Urea Nitrogen 10 mg/dL (6-20); Calcium 10.7 mg/dL (8.5-10.5); Carbon Dioxide 27 mmol/L (22-29); Chloride 103 mmol/L (98-107); Globulin 3.4 g/dL (1.3-4.6); Glomerular Filtration Rate 143.8 mL/min (90-130); Glucose 93 mg/dL (65-115); Lipase 23 U/L (13-60); Potassium 4.2 mmol/L (3.5-5.1); Sodium 142 mmol/L (136-145); Total Bilirubin 0.5 mg/dL (0.15-1.2); Total Protein 7.7 g/dL (6.6-8.7)
[2019-06-17 19:55] VITALS: BP 130/73; PULSE 71; RESP 18; O2SAT 99
== END 2019-06-17 19:56 | disposition home or self-care (01) ==
PROVIDERS: Emergency Medicine; Emergency Provider Family Medicine
DX: K29.70 Gastritis, unspecified, without bleeding (principal); K59.00 Constipation, unspecified; F17.200 Nicotine dependence, unspecified, uncomplicated
CPT/HCPCS: 74177; 80053; 81003; 83690; 85025; 96374; 96375; 99282; 99283; J2405; Q9967